=== PATIENT | female | born 1980 ===

== ENCOUNTER 2018-10-06 08:14 | Inpatient (IN) | payer BC ==
[2018-10-06 08:33] VITALS: BMI 33.3
[2018-10-06] MEDS ORDERED: Oxytocin 30 UNIT in NS 500 ml 30 UNITS/500 ML BAG IV ONE ×2 (08:33→08:35)
[2018-10-06] MEDS ORDERED: Lactated Ringer's 1,000 ML IV ONE ×2 (08:33→10:14)
[2018-10-06] MEDS ORDERED: OXYTOCIN/0.9 % NS 20 UNIT/1,000 ML BAG IV ONE ×3 (08:35→14:19)
[2018-10-06] MEDS ORDERED: Lidocaine 1% Inj (20ml) ONE (08:43)
[2018-10-06] MEDS ORDERED: Fentanyl/Bupivacaine HCl 250 ML EPI ONE (08:55)
[2018-10-06 09:29] LABS: BASO % 0.4 % (0.0-2.0); EOS # 0.1 K/uL (0.0-0.7); EOS % 0.5 % (0.0-4.0); HEMOGLOBIN 12.8 g/dL (12.0-16.0); LYMPH # 2.9 K/uL (1.0-4.3); LYMPH % 22.6 % (20.0-40.0); MEAN CELL VOLUME 84.3 fl (81.0-99.0); MEAN CORPUSCULAR HEMOGLOBIN 27.1 pg (27.0-31.0); MEAN CORPUSCULAR HGB CONC 32.2 g/dL (33.0-37.0); MONO # 1.1 K/uL (0.0-0.8); MONO % 8.6 % (0.0-10.0); NEUT # 8.7 K/uL (1.8-7.0); NEUT % 67.9 % (50.0-75.0); NRBC % 0.1 % (0.0-0.0); RBC 4.71 Mil/uL (3.80-5.20); RED CELL DISTRIBUTION WIDTH 22.1 % (11.5-14.5); WHITE BLOOD COUNT 12.8 K/uL (4.8-10.8)
[2018-10-06] MEDS ORDERED: Lactated Ringer's 1,000 ML IV SCH ×2 (09:45→14:19)
[2018-10-06] MEDS ORDERED: cefOXitin Sodium 1 GM in Sodium Chloride 0.9% 100 ML IVPB ONE (10:20)
[2018-10-06] MEDS ORDERED: Morphine 5 mg/10 ml preservative-free Inj(Duramorph) ONE (10:29)
[2018-10-06] MEDS ORDERED: ceFAZolin 1 GM in Sodium Chloride 0.9% 100 ML IVPB ONE (10:30)
--- NOTE | 2018-10-06 10:31 | OBADHP ---
Datetime: 10/06/2018 10:30 Dilatation, Provider: 9-10 Effacement, Provider: 90 Datetime: 10/06/2018 10:21 IP Chief Complaint Other: macrosomia by sono Admit Comment, IP Provider: admit to unit and type and cross( hx of blood transfution after last de livery PP hemorrage) Disc ussed with pt and partner again about hx of macrosomia by sono and discuss ed risk of shoulder dystocia and injury to canal and baby internal organs vs risks and complica tions of surgery and anesthesia and they will discuss and decide Extremities - PN: Abnormal Abdomen - PN: Abnormal Back - PN: Normal Breast - PN: Not Done Lungs - PN: Normal Heart - PN: Normal Thyroid - PN: Not Done Neurologic - PN: Not Done HEENT - PN: Normal General - PN: Normal FHR - Baseline A Provider: 140 Comments, ACOG Physical Exam: Abd gravid fundus at 42 cm above sp; ext bilateral edema but DTR 2+ s ymetrical Gestation - Est Wks by US: 40+ IP Hx Assessment: The History has been Reviewed and is Current IP Chief Complaint: Uterine contractions; Suspected ruptured membranes; Other NICHD Variability Prov Fetus A: Minimal - Undetectable to <5bpm NICHD Decel Fetus A IP Provider: Early Genitourinary Exam: Normal DTRs - PN: Normal EGA AdmitDate IP: 40.2 IP Adm Impression: Term, intrauterine ; Active labor; Ruptured Membranes IP Admit Plan: Admit to unit; Initiate labor protocol
--- NOTE | 2018-10-06 10:36 | OBPN ---
Datetime: 10/06/2018 10:30 IP Progress Impression Other: macrosomia by sono IP Progress Impression: Arrest of dilatation/descent IP Informed Consent Obtain: Section Delivery IP Progress Plan: Deliver- Section Contraction Comments Provider: 2 min FHR - Baseline A Provider: 140 Gestation - Est Wks by US: 40+ IP Progress Note Comment: had epidural but very unconfortable, and pt has now requesting abdominal d eliverchavez Again explained risks and potential complications of vs C/S and she still elects to go b y C /S Informed consent obtained Will proceed. NICHD Variability Prov Fetus A: Minimal - Undetectable to <5bpm Dilatation, Provider: 9-10 Effacement, Provider: 90 Station, Provider: very high NICHD Decel Fetus A IP Provider: Early
--- NOTE | 2018-10-06 11:54 | OBDS ---
DELIVERY PERSONNEL Delivery Doctor: [place] Shoemaker MD Watchmaking Teacher: Muna Todd RN Anesthesiologist: Lubna Cisneros MD MATERNAL INFORMATION Delivery Anesthesia: Epidural; Spinal Medications in Delivery: 400mcg cytotec CT by dr shoemaker. Pitocin 30units in 500ml lr Estimated Blood Loss (ml): 850 Placenta Cultured: No Maternal Complications: Other Other Maternal Complications: macrosomia by sono/failure of descend/hx of PP hemorrage last preg. Provider Comments: see dictated surgeons note LABOR SUMMARY EDC: 10/04/2018 00:00 No. Babies in Womb: 1 Attempted: No Labor Anesthesia: Epidural LABOR INFORMATION Reason for Induction: Not Applicable Onset of Labor: 10/06/2018 07:00 Complete Dilatation: 10/06/2018 09:29 Oxytocin: N/A Group B Beta Strep: Negative Steroids Given: None Reason Steroids Not Administered: Not Applicable MEMBRANES Membranes Rupture Method: Spontaneous Rupture of Membranes: 10/06/2018 05:30 Length of Rupture (hrs): 5.52 Amniotic Fluid Color: Clear Amniotic Fluid Amount: Moderate Amniotic Fluid Odor: Normal STAGES OF LABOR Stage 1 hrs: 2 Stage 1 min: 29 Stage 2 hrs: 1 Stage 2 min: 32 Stage 3 hrs: 0 Stage 3 min: 1 Total Time in Labor hrs: 4 Total Time in Labor min: 2 VAGINAL DELIVERY Episiotomy: None Laceration Extension: N/A Laceration Type: None Laceration Repair: Not Applicable Sponge Count Correct: Yes Sharps Count Correct: Yes Count Comment: count correct x3 CSECTION DELIVERY Primary Indication: Failure of Descent Other Primary Indication: maternal request Secondary Indication: Other (mcrosomia by sono) CSection Urgency: Elective CSection Incidence: Primary Labor: Labor Elective: Nonelective CSection Incision: Lower Uterine Transverse Other Sterilization Procedure: N/A Uterine Closure: Double-layer closure BABY A INFORMATION Delivery Date/Time: 10/06/2018 11:01 Method of Delivery: Vaginal Born in Route : No : N/A Forceps: N/A Vacuum Extraction: N/A Shoulder Dystocia : No SHOULDER DYSTOCIA BABY A Infant Delivery Date/Time: 10/06/2018 11:01 PRESENTATION/POSITION BABY A Presentation: Cephalic Cephalic Presentation: Vertex Breech Presentation: N/A PLACENTA INFORMATION BABY A Placenta Delivery Time : 10/06/2018 11:02 Placenta Method of Delivery: Manual Removal Placenta Status: Delivered SCORES BABY A Heart Rate 1 min: >100 bpm Resp Effort 1 min: Good Cry Reflex Irritability 1 min: Cough or Sneeze or Pulls Away Muscle Tone 1 min: Active Motion Color 1 min: Body [place], Extremities Blue Resuscitation Effort 1 min: N/A SCORE 1 MIN: 9 Heart Rate 5 min: >100 bpm Resp Effort 5 min: Good Cry Reflex Irritability 5 min: Cough or Sneeze or Pulls Away Muscle Tone 5 min: Active Motion Color 5 min: Body [place], Extremities Blue Resuscitation Effort 5 min: N/A SCORE 5 MIN: 9 INFORMATION BABY A Gestational Age at Delivery: 40.2 Gestational Status: Post-term Outcome : Liveborn Infant Condition : Stable Sex: Male IDENTIFICATION/MEDS BABY A ID Band Number: [id number] ID Band Location: Left Leg; Left Arm WEIGHT/LENGTH BABY A Birthweight (gms): 4210 Infant Weight (lb): 9 Weight (oz): 4 CORD INFORMATION BABY A No. Cord Vessels: 3 Nuchal Cord : N/A Cord Blood Taken: Yes Infant Suction: None ASSESSMENT BABY A Complications: None Physical Findings at Delivery: Within Normal Limits Respirations: Appears Normal Infant Care By: Dr Mccloud Transferred To: Remains with Mother
[2018-10-06] MEDS ORDERED: Oxycodone/Acetaminophen 5/325 mg Tab PO PRN (11:56)
[2018-10-06] MEDS ORDERED: Naloxone 0.4 mg/ml Inj (Adult) IVP PRN ×2 (12:05→14:19)
[2018-10-06] MEDS ORDERED: DiphenhydrAMINE 50 mg/ml Inj IVP PRN ×2 (12:05→14:19)
[2018-10-06] MEDS ORDERED: cefOXitin IV 1 gm in Dextrose 1 GM/50 ML BAG IVPB SCH (17:00)
[2018-10-06] MEDS: cefOXitin IV 1 gm in Dextrose 1 GM/50 ML BAG IVPB SCH (18:11)
[2018-10-06] MEDS: Lactated Ringer's 1,000 ML IV SCH (23:35)
[2018-10-07] MEDS: cefOXitin IV 1 gm in Dextrose 1 GM/50 ML BAG IVPB SCH ×2 (01:34→10:20)
[2018-10-07 06:55] LABS: HEMOGLOBIN 10.4 g/dL (12.0-16.0); MEAN CELL VOLUME 84.9 fl (81.0-99.0); MEAN CORPUSCULAR HEMOGLOBIN 27.3 pg (27.0-31.0); MEAN CORPUSCULAR HGB CONC 32.2 g/dL (33.0-37.0); RBC 3.8 Mil/uL (3.80-5.20); WHITE BLOOD COUNT 12.3 K/uL (4.8-10.8)
--- NOTE | 2018-10-07 07:55 | OBPPN ---
Datetime: 10/07/2018 07:49 PP Pain Prov: Within normal limits PP Pain Prov comment: No SOB, chest pains PP Nausea Prov: Denies PP Nausea Prov comment: No C/F PP Breasts Prov: Not Done PP Lungs Prov: Normal PP Abdomen/Uterus Prov: Abnormal PP Lochia Prov: Normal PP Vulva/Perineum Prov: Normal PP CVA Tenderness Prov: Normal PP Extremities Prov: Abnormal PP C/S Incision Prov: Normal PP Progress Prov: Not Applicable PP Comments Phys Exam Prov: ABd soft not distended depressible fundus firm at 1 FB below the umb. Dr tomlinson intact no sign of active bleeding; Ext c/o calf tenderness bilaterally but Luz Marina neg Gee ped al edema. PP Impression Prov: Normal progression PP Plan Other Prov: Venous doppler of both legs PP Progress Note Prov: CBC reviiewed and stable Replace Venodyne boots and will get venous doppler n ow
[2018-10-07] MEDS: Lactated Ringer's 1,000 ML IV SCH ×2 (08:16→17:04)
[2018-10-07] MEDS: Multivitamin With Minerals Tab PO SCH (08:20)
[2018-10-07] MEDS ORDERED: Multivitamin With Minerals Tab PO SCH (09:00)
--- NOTE | 2018-10-07 11:13 | US ---
Date of service: 10/07/2018 PROCEDURE: Bilateral lower extremity venous duplex Doppler. HISTORY: calf pain bilateral COMPARISON: None available. TECHNIQUE: Bilateral common and superficial femoral, popliteal and posterior tibial veins were evaluated. Flow was assessed with grayscale and color Doppler, compressibility, assessment of phasic flow and augmentation response. FINDINGS: COMMON FEMORAL VEIN: Right CFV: Unremarkable. Left CFV: Unremarkable. SUPERFICIAL FEMORAL VEIN: Right SFV: Unremarkable. Left SFV: Unremarkable. POPLITEAL VEIN: Right Popliteal: Unremarkable. Left Popliteal: Unremarkable. POSTERIOR TIBIAL VEIN: Right PTV: Unremarkable. Left PTV: Unremarkable. OTHER FINDINGS: None. IMPRESSION: No sonographic evidence of deep venous thrombosis bilateral lower extremities.
[2018-10-07] MEDS: Oxycodone/Acetaminophen 5/325 mg Tab PO PRN (22:54)
--- NOTE | 2018-10-08 00:52 | OP ---
PROCEDURE DATE: 10/06/2018 PREOPERATIVE DIAGNOSES: 1. at 40 plus weeks' gestation. 2. Labor. 3. Failure of descent. 4. Macrosomia by ultrasound. 5. Maternal request. POSTOPERATIVE DIAGNOSES: 1. at 40 plus weeks' gestation. 2. Labor. 3. Failure of descent. 4. Macrosomia. 5. Maternal request. PROCEDURE PERFORMED: Primary low-transverse segment section. SURGEON: Delvin Shoemaker MD PRISON GUARD: Jake Koch MD, who was there for the entire duration of the case. Supervisor Fur Floor Worker was needed in order to provide assistance in positioning the patient, opening up the abdomen, delivery of the baby, and closure of the abdomen. No surgical assistant certified is present at this time. ANESTHESIA USED: Failed epidural and spinal by Dr. Cisneros. ESTIMATED BLOOD LOSS: 850 mL. DRAINS USED: None. REPLACEMENTS USED: None. FINDINGS: 1. Delivered living baby boy. Baby appeared large for gestational age. Baby cried spontaneously. Hull Molder in attendance. score of 9 and 9. 2. Amniotic fluid clear. 3. Placenta complete and intact. 4. Both tubes and ovaries appear grossly within normal limits to inspection bilaterally. DESCRIPTION OF PROCEDURE: The patient was taken to the operating room and placed on the operating table in a supine position. Following this, the epidural catheter was then removed by the anesthesiologist and a spinal anesthesia was then induced. Following induction of spinal anesthesia, after the failed epidural, the abdomen was draped and prepped in the usual sterile manner. Prior to this, a Barron catheter had been inserted into the bladder, was draining bloody urine grossly but light. Venodyne boots were applied to both legs and after draping and prepping the patient, anesthesia tested and found to be well secured. A Pfannenstiel incision was then made using sharp dissection two fingerbreadths above the symphysis pubis. The incision was then extended down to subcutaneous tissue also using sharp dissection. At this time, we then proceeded to obtain hemostasis by means of electrocoagulation. The fascia was then identified, was then entered in the midline incision. The fascia was then extended laterally on each direction using sharp dissection. At this time, rectus muscle was then identified, was then slit at the midline exposing the peritoneum. Peritoneal layer was then picked up using two Jazmine clamps, retracted superiorly, and then entered using sharp dissection. The incision on the peritoneum was then extended superiorly and inferiorly under direct visualization. At this time, the bladder was then identified, was then retracted inferiorly using a Mary retractor. The low-transverse segment of the uterus was then identified and the visceral peritoneum covering this area was then entered using sharp dissection. Using blunt dissection, a bladder flap was then created and retracted inferiorly using the same [place] retractor. Following this, an incision was then made in the low transverse segment of the uterus. Upon entering the uterine cavity, clear fluid noted to be present. The incision was then extended laterally in each direction using bandage scissors. Using a manual scooping procedure, baby boy was then delivered. The baby appeared grossly macrosomic. The baby cried spontaneously. It was aspirated immediately using the bulb suction. The umbilicus was then doubly clamped, cut, and the baby was handed to the pediatric personnel who was standing by. Samples of cord blood were then obtained and the placenta was then delivered complete and intact. The uterus was then exteriorized to provide better visualization. The uterine cavity was then thoroughly cleaned using moist lap pads and the uterus massaged and contracted well. The uterine incision was then secured using multiple T clamps and was then approximated using 0 Vicryl suture in a continuous interlocking manner. A second layer was also applied using 0 Vicryl suture in a continuous manner. Hemostasis was checked and found to be well secured. The bladder flap was then approximated using a 2-0 Rapide in a continuous manner. Again hemostasis checked and found to be well secured. Free amniotic fluid and blood evacuated from the pelvic cavity. Pelvic cavity was then irrigated using saline solution. Both tubes and ovaries appeared grossly within normal limits to inspection bilaterally. The uterus was then allowed to retract back into its original position. All operative areas checked, hemostasis was secured, and the peritoneum was then closed after again irrigating the abdomen using saline solution. The peritoneum was closed using 0 Vicryl suture in a continuous manner. Fascia was then closed after the rectus muscle was approximated in the midline using several interrupted 2-0 Vicryl sutures. At this time, the fascia was then identified, was then approximated using 1 Vicryl suture in a continuous manner. Fascia was then checked and found to be free of defect. Subcutaneous tissue was then irrigated using saline solution and approximated using several interrupted 2-0 plain sutures. The skin was then approximated using a 3-0 Prolene in a subcuticular fashion. Steri-Strips were then applied. Sponge, instrument and needle count were correct x3. The patient tolerated the procedure well. There were no complications. She was transferred to the recovery room in satisfactory condition. The Barron appeared to still have some bloody urine, but it appeared to be clearing up. Delvin Shoemaker MD MTDRaza
[2018-10-08] MEDS: Multivitamin With Minerals Tab PO SCH (08:03)
[2018-10-08] MEDS: Bacitracin OINT 15GM TOP SCH ×2 (13:00→16:08)
[2018-10-08] MEDS: Oxycodone/Acetaminophen 5/325 mg Tab PO PRN ×2 (13:12→20:10)
[2018-10-09] MEDS: Oxycodone/Acetaminophen 5/325 mg Tab PO PRN (03:05)
[2018-10-09] MEDS: Lactated Ringer's 1,000 ML IV SCH (07:42)
--- NOTE | 2018-10-09 08:10 | OBPPN ---
Datetime: 10/09/2018 08:05 PP Pain Prov: Within normal limits PP Pain Prov comment: No SOB, chest or leg pains PP Nausea Prov: Denies PP Flatus Prov: Yes PP BM Prov: Yes PP Breasts Prov: Normal PP Lungs Prov: Normal PP Abdomen/Uterus Prov: Abnormal PP Lochia Prov: Normal PP Vulva/Perineum Prov: Normal PP CVA Tenderness Prov: Normal PP Extremities Prov: Abnormal PP C/S Incision Prov: Normal PP Progress Prov: Normal PP Comments Phys Exam Prov: breast NE, NT breast feeding; Abd soft ND, fundus firm at umb, incision clean and dry no active bleeding or suppt Prolene in blanco ce, steady strips in place, no sign of infection; Ext still with edema bilaterally but less, no calf tenderness. PP Impression Prov: Normal progression PP Plan Prov: Discharge PP Progress Note Prov: D/C home with instructions and follow up office 1 wk IP PP Procedures: None Vital Signs Provider PP: Reviewed
--- NOTE | 2018-10-09 08:13 | OBDCSUM ---
Datetime: 10/09/2018 08:09 Discharged to, Provider: Home Follow up at, Provider: Dr Shoemaker Disch Instr Activity: Bedrest; May be up to bathroom; May be up for meals; May Shower Disch Instr Diet: Regular Discharge Instructions, Provider: Routine instructions given Discharge Diagnosis, Provider: Term Delivered Discharge Time: 10/09/2018 08:09 Follow up in weeks, Provider: 1 wk Disch Referrals: None Contraception discussed, Prov: Yes Disch Activity Restrictions: No exercising; No lifting; No driving; Minimize walking; Minimize stair -climbing; No sexual activity; Nothing in vagina - Wall, tampons, douche Discharge Comment, Provider: rx for Percocet given and continue PO care, PNC vit and iron Discharge Diagnosis Prov Other: macrosomia Contraception after Delivery: Undecided
[2018-10-09] MEDS: Multivitamin With Minerals Tab PO SCH (09:55)
[2018-10-09] MEDS: Bacitracin OINT 15GM TOP SCH (09:56)
[2018-10-09 18:19] VITALS: BP 106/74; PULSE 98; RESP 18; TEMP 97.5; O2SAT 98
== END 2018-10-09 13:20 | disposition home or self-care (01) | DRG 788 ==
LOC: H.EROB2 08:14 → H.L&D 08:33 → H.OB/GYN 14:22
PROVIDERS: ADMIT Specialist; ATTEND Specialist
PROC: 10D00Z1 Extraction of Products of Conception, Low, Open Approach (ICD-10-PCS; principal; 2018-10-06)
PROC: 4A1HXCZ Monitoring of Products of Conception, Cardiac Rate, External Approach (ICD-10-PCS; 2018-10-06)
DX: O36.63X0 Maternal care for excessive fetal growth, third trimester, not applicable or unspecified (principal); Z3A.40 40 weeks gestation of pregnancy; Z37.0 Single live birth; O32.4XX0 Maternal care for high head at term, not applicable or unspecified; O62.0 Primary inadequate contractions; O48.0 Post-term pregnancy